=== PATIENT | male | born 1950 | race Caucasian/White ===

== ENCOUNTER 2020-09-18 16:31 | Inpatient (IN) | payer BC, MEDICARE ==
[2020-09-18] VITALS (11 sets, daily range): BP systolic 100–152; BP diastolic 59–86
[~2020-09-18] VITALS: Ht 188 cm; Wt 90.4 kg
[2020-09-18 17:28] LABS: BASO # 0.1 10^3/uL (0.0-0.2); BASO % 0.5 % (0.0-1.0); EOS # 0.5 10^3/uL (0.0-0.5); EOS % 3.3 % (0.0-3.0); LYMPH # 1.3 10^3/uL (1.5-5.0); LYMPH % 8.7 % (24.0-44.0); MEAN CORPUSCULAR HGB CONC 30.6 g/dl (32.0-36.5); MONO # 0.9 10^3/uL (0.0-0.8); MONO % 6.1 % (0.0-5.0); NEUTROPHILS # 11.6 10^3/uL (1.5-8.5); NEUTROPHILS % 79.2 % (36.0-66.0); PLATELET COUNT, AUTOMATED 367 10^3/uL (150-450); RED BLOOD COUNT 1.34 10^6/uL (4.30-6.10); WHITE BLOOD COUNT 14.7 10^3/uL (4.0-10.0)
[2020-09-18 17:31] LABS: MEAN CORPUSCULAR VOLUME 134.3 fl (80.0-96.0)
[2020-09-18 17:32] LABS: HEMOGLOBIN 5.5 g/dl (13.5-17.5)
[2020-09-18 17:42] LABS: INR 1.3; PROTHROMBIN TIME 16.5 SECONDS (12.5-14.3)
[2020-09-18] MEDS ORDERED: PANTOPRAZOLE 40MG VIAL (C9113 PER 1) IV ONE (17:45)
[2020-09-18 17:54] LABS: ALT/SGPT 11 U/L (12-78); BLOOD UREA NITROGEN 62 MG/DL (7-18); CALCIUM LEVEL 8.8 MG/DL (8.8-10.2); CARBON DIOXIDE LEVEL 21 MEQ/L (21-32); CHLORIDE LEVEL 110 MEQ/L (98-107); CREATININE FOR GFR 3.13 MG/DL (0.70-1.30); GLOMERULAR FILTRATION RATE 21.1 (>49); GLUCOSE, FASTING 103 MG/DL (70-100); POTASSIUM SERUM 4.5 MEQ/L (3.5-5.1); SODIUM LEVEL 140 MEQ/L (136-145)
[2020-09-18 17:55] LABS: ALBUMIN 2.8 GM/DL (3.2-5.2); BILIRUBIN,DIRECT 0.1 MG/DL (0.0-0.2); BILIRUBIN,TOTAL 0.2 MG/DL (0.2-1.0); CK-MB VALUE MASS 2.2 NG/ML (<3.6); CPK CREATINE PHOSPHOKINASE 62 U/L (39-308); LIPASE 512 U/L (73-393); MB/CK RELATIVE INDEX 3.55 (< OR =4); TOTAL PROTEIN 5.6 GM/DL (6.4-8.2); TROPONIN I < 0.02 NG/ML (< 0.10)
[2020-09-18] MEDS ORDERED: ELIQ5TAB PO (17:58)
[2020-09-18] MEDS ORDERED: TACR0.5C3 PO ×2 (17:58→18:18)
[2020-09-18] MEDS ORDERED: MAGN400C PO (17:58)
[2020-09-18] MEDS ORDERED: METO100T5 PO (17:58)
[2020-09-18 18:04] LABS: ANISOCYTOSIS 1+
[2020-09-18 18:05] LABS: POLYCHROMASIA 1+
[2020-09-18 18:09] LABS: PLATELET ESTIMATE NORMAL (NORMAL)
[2020-09-18] MEDS ORDERED: ACETAMINOPHEN TAB 650MG DOSE (2X325MG) PO PRN (19:30)
--- NOTE | 2020-09-18 19:51 | HPEPDOC ---
[facility] Medical History & Physical Date of Admission Sep 18, 2020 Date of Service: Sep 18, 2020 History and Physical Chief complaint: Presented to the ER after he was sent in by his tnt line supervisor for low hemoglobin History of present illness: Patient is a 70-year-old male with a PMHx of A. 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 Patient was that he has been feeling weak and had fainted twice while at home, during his ambulation through the living room. Patient followed up with his tnt line supervisor to check a CBC that had revealed a hemoglobin of 5.9. Patient was sent into the ER for further evaluation. Patient reports that hes been feeling weak and tired for the last couple of weeks. Patient denies any chest pain, palpitations or cough, but does report shortness of breath with exertion. He denies any nausea, vomiting, abdominal pain. Does report constipation and his last bowel movement was yesterday. Patient has been reporting dark stools for the last couple of weeks. Patient was started on blood thinners (Eliquis), 10/2019 when he was admitted to hospital in [place] for atrial fibrillation. He notes that the last time he had an EGD was back in 2007 at [facility] and is unsure when his last colonoscopy was. The EGD had revealed esophageal ulcerations and appears to have been done prior to his transplant. Patient reports his appetite is poor and has experience a 40 pound weight loss over last 2 years. Past Medical History: A. 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 Review of Systems: 10 point review of systems complete, all negative otherwise stated in HPI Physical exam: - Vitals: BP [112/61], HR [84], RR [16], Sat [100%RA], Temp [97.2F] - General: Lying in bed, No acute distress, Speaking in full sentences, AAOx3 - HEENT: NC, AT, PERRLA - CVS: RRR, +S1S2 - Lungs: Fair air entry bilaterally, No appreciable wheezing / rales / rhonchi - Abdomen: Soft, Non-distended, Non-tender - Extremities: No lower extremity edema, No calf tenderness - Neuro: No focal motor or sensory deficit - Skin: No visible rashes Labs: See below Imaging: See below EKG: See below Assessment and Plan: Symptomatically anemia / acute blood loss anemia - Patient presented to the ER after experiencing weakness, fatigue and shortness of breath with exertion - To have a low hemoglobin at his cardiologists office confirmed in the ER - Hemoglobin of 5.5 on admission; however, there appears to be macrocytosis - Hg on 05/28/2020 was noted to be 10.5 - Will check iron panel/vitamin B12/folate/reticulocyte count/LDH/haptoglobin - Will transfuse 3 units PRBC - Will start Protonix drip and Carafate - Will keep patient NPO for now - Will consult gastroenterology Paroxysmal A. 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 - Tacrolimus level on 05/28/2020 noted to be 3.1 (Normal 2-20) - Will check tacrolimus level - c/w Tacrolimus CKD3 - BUN/Cr on 05/28/2020 noted to be 30/2.9 - Cr currently appears to be at baseline Gastrointestinal prophylaxis - Will start Protonix / Carafate DVT prophylaxis - Will start TEDs/Sequentials (re: Acute anemia / GI Bleed) Vital Signs Vital Signs Date Time Temp Pulse Resp B/P (MAP) Pulse Ox O2 Delivery O2 Flow Rate FiO2 09/18/20 19:35 96.9 85 16 124/62 100 Room Air Laboratory Data Labs 24H Laboratory Tests 2 09/18/20 17:10: Immature Granulocyte % (Auto) 2.2, Neutrophils (%) (Auto) 79.2H, Lymphocytes (%) (Auto) 8.7L, Monocytes (%) (Auto) 6.1H, Eosinophils (%) (Auto) 3.3H, Basophils (%) (Auto) 0.5, Neutrophils # (Auto) 11.6H, Lymphocytes # (Auto) 1.3L, Monocytes # (Auto) 0.9H, Eosinophils # (Auto) 0.5, Basophils # (Auto) 0.1, Nucleated Red Blood Cells % (auto) 0.4H, Platelet Estimate NORMAL, Polychromasia 1+, Anisocytosis 1+, Macrocytosis 4+, Prothrombin Time 16.5H, Prothromb Time International Ratio 1.30, Anion Gap 9, Glomerular Filtration Rate 21.1L, Calcium Level 8.8, Total Bilirubin 0.2, Direct Bilirubin 0.1, Aspartate Amino Transf (AST/SGOT) 13, Alanine Aminotransferase (ALT/SGPT) 11L, Alkaline Phosphatase 94, Total Creatine Kinase 62, Creatine Kinase MB 2.2, Creatine Kinase MB Relative Index 3.55, Troponin I < 0.02, Total Protein 5.6L, Albumin 2.8L, Albumin/Globulin Ratio 1.0, Lipase 512H 09/18/20 17:59: Coronavirus (COVID-19)(PCR) NEGATIVE, Influenza Type A (RT-PCR) NEGATIVE, Infl uenza Type B (RT-PCR) NEGATIVE, Respiratory Syncytial Virus (PCR) NEGATIVE CBC/BMP Laboratory Tests 09/18/20 17:10 Home Medications Scheduled Apixaban (Eliquis) 5 Mg Tablet, 5 MG PO BID Magnesium Oxide (Magnesium) 400 Mg Capsule, 400 MG PO DAILY Metoprolol Tartrate (Metoprolol Tartrate) 100 Mg Tablet, 50 MG PO BID PCP INSTRUCTED IF BP UNDER 100 TO SKIP DOSE Tacrolimus (Tacrolimus) 0.5 Mg Capsule, 2.5 MG PO DAILY Tacrolimus (Tacrolimus) 0.5 Mg Capsule, 1.5 MG PO QHS Allergies Coded Allergies: No Known Allergies (Verified Allergy, Unknown, 09/18/20) FARIDA PERLA MD Sep 18, 2020 19:51
[2020-09-18 20:24] LABS: FERRITIN 70 NG/ML (26-388); IRON (FE) 39 UG/DL (65-175); LDH LACTATE DEHYDROGENASE 145 U/L (87-241); PERCENT SATURATION 11.3 % (19.7-50.0); TOTAL IRON BINDING CAPACITY 345 UG/DL (250-450)
[2020-09-18 20:28] LABS: FOLATE 3.4 NG/ML (>5.4)
[2020-09-18] MEDS: TACROLIMUS 0.5 MG CAP PO SCH (21:50)
[2020-09-18] MEDS: SUCRALFATE 1 GM TAB PO SCH (21:50)
[2020-09-18] MEDS: PANTOPRAZOLE SODIUM 40 MG in D5W 50 ML IV SCH (22:26)
[2020-09-18] MEDS: METOPROLOL TART 25 MG TABLET PO SCH (23:52)
[2020-09-19] VITALS (11 sets, daily range): BP systolic 117–155; BP diastolic 63–86
[2020-09-19] MEDS: PANTOPRAZOLE SODIUM 40 MG in D5W 50 ML IV SCH ×5 (02:48→20:47)
[2020-09-19 03:14] LABS: BASO # 0.1 10^3/uL (0.0-0.2); BASO % 0.7 % (0.0-1.0); EOS # 0.4 10^3/uL (0.0-0.5); EOS % 3.5 % (0.0-3.0); HEMATOCRIT 25.3 % (42.0-52.0); HEMOGLOBIN 8.1 g/dl (13.5-17.5); LYMPH # 1.3 10^3/uL (1.5-5.0); LYMPH % 10.5 % (24.0-44.0); MEAN CORPUSCULAR HEMOGLOBIN 35.1 pg (27.0-33.0); MEAN CORPUSCULAR VOLUME 109.5 fl (80.0-96.0); MONO # 0.7 10^3/uL (0.0-0.8); MONO % 5.4 % (0.0-5.0); NEUTROPHILS # 9.8 10^3/uL (1.5-8.5); NEUTROPHILS % 77.3 % (36.0-66.0); PLATELET COUNT, AUTOMATED 344 10^3/uL (150-450); RED BLOOD COUNT 2.31 10^6/uL (4.30-6.10); WHITE BLOOD COUNT 12.7 10^3/uL (4.0-10.0)
[2020-09-19 03:51] LABS: PLATELET ESTIMATE NORMAL (NORMAL); POLYCHROMASIA 2+
[2020-09-19 03:52] LABS: ANISOCYTOSIS 3+
[2020-09-19 04:12] LABS: ALBUMIN 2.6 GM/DL (3.2-5.2); ALT/SGPT 11 U/L (12-78); BILIRUBIN,TOTAL 0.8 MG/DL (0.2-1.0); BLOOD UREA NITROGEN 53 MG/DL (7-18); CALCIUM LEVEL 8.7 MG/DL (8.8-10.2); CARBON DIOXIDE LEVEL 22 MEQ/L (21-32); CHLORIDE LEVEL 110 MEQ/L (98-107); CK-MB VALUE MASS 2.1 NG/ML (<3.6); CPK CREATINE PHOSPHOKINASE 118 U/L (39-308); GLOMERULAR FILTRATION RATE 21.4 (>49); GLUCOSE, FASTING 99 MG/DL (70-100); MAGNESIUM LEVEL 1.5 MG/DL (1.8-2.4); MB/CK RELATIVE INDEX 1.78 (< OR =4); POTASSIUM SERUM 4.4 MEQ/L (3.5-5.1); SODIUM LEVEL 139 MEQ/L (136-145); TOTAL PROTEIN 5.8 GM/DL (6.4-8.2); TROPONIN I < 0.02 NG/ML (< 0.10)
[2020-09-19] MEDS: MAG SULF 1GM/100ML (MAG RUN) 1 GM in IV 1 EA IV SCH ×3 (05:19→09:46)
[2020-09-19] MEDS: METOPROLOL TART 25 MG TABLET PO SCH ×3 (05:20→18:06)
[2020-09-19] MEDS: SUCRALFATE 1 GM TAB PO SCH ×4 (07:30→20:48)
[2020-09-19] MEDS: MAGNESIUM OXIDE 400 MG TAB (MAG-OX) PO SCH (08:45)
[2020-09-19] MEDS: TACROLIMUS 1 MG CAP (J7507) PO SCH (08:49)
[2020-09-19] MEDS ORDERED: TACROLIMUS 0.5 MG CAP PO SCH (09:00)
--- NOTE | 2020-09-19 10:20 | ECGEPIP ---
[facility] - ED Test Date: 2020-09-18 Pat Name: GINA MENDEZ Department: Room: - Gender: Male Network Mgr: yenny : 1950 Requested By: Nelsy Jain Order Number: [id number] Reading MD: Eric Mauricio Measurements Intervals [place] Rate: 81 P: 66 NM: 153 QRS: 19 QRSD: 85 T: 66 QT: 372 QTc: 433 Interpretive Statements SINUS RHYTHM POSSIBLE RIGHT VENTRICULAR CONDUCTION DELAY NONSPECIFIC ST T WAVE CHANGES DELAYED R WAVE PROGRESSION NO PRIOR ECG FOR COMPARISON Electronically Signed on 09-19-2020 10:20:18 EST by Eric Mauricio
--- NOTE | 2020-09-19 15:01 | IPNPDOC ---
Date Seen The patient was seen on 09/19/20. Progress Note SUBJECTIVE: Received 4 U PRBC total, post transfusion H/H pending. Stable HD, no acute complaints. TB with GI to determine when taking to OR. Denies abdominal pain, lightheadedness, dizziness, n/v/d. OBJECTIVE: PHYSICAL EXAMINATION: VS: Please see General: Lying in bed, No acute distress, AAOx3 HEENT: NC, AT, PERRLA CVS: RRR, +S1S2 Lungs: Fair air entry bilaterally, No appreciable wheezing / rales / rhonchi Abdomen: Soft, Non-distended, Non-tender Extremities: No lower extremity edema, No calf tenderness Neuro: No focal motor or sensory deficit Skin: No visible rashes Labs: See below Imaging: See below EKG: See below ASSESSMENT: 70 y/o M with PMH of paroxysmal atrial fib on eliquis, liver cirrhosis s/p liver transplant, CKD Stage III admitted for further workup/treatment of symptomatic anemia likely 2/2 to GI bleed. PLAN: #Symptomatically anemia / acute blood loss anemia 2/2 to GI bleed - Hemoglobin of 5.5. S/p 3 units PRBC 8.11/09. F/u CBC after fourth unit - Hg on 05/28/2020 was noted to be 10.5 - MCV high but could be still MF anemia - Iron low, folate low as well. F/u Vitamin B12 level - Will start folic acid daily, iron supplement when taking PO - C/w Protonix drip, Carafate, NPO. - GI to see and take for possible colo/EGD 09/19/20 or 09/20/20 #Paroxysmal A. 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 Current tacrolimus level lab pending - c/w Tacrolimus for now unless not indicated with pending level #CKD3 - BUN/Cr on 05/28/2020 noted to be 30/2.9 - Cr currently appears to be at baseline #GI prophylaxis - C/wProtonix / Carafate #DVT prophylaxis - C/w TEDs/Sequentials (re: Acute anemia / GI Bleed) DISPOSITION: Stable, H/H correcting appropriately. F/u GI recommendations. Plan is home when medically improved. VS, I&O, 24H, [place] Vital Signs/I&O Vital Signs Date Time Temp Pulse Resp B/P (MAP) Pulse Ox O2 Delivery O2 Flow Rate FiO2 09/19/20 12:01 97.2 72 18 132/76 (94) 98 Room Air I&O- Last 24 Hours up to 6 AM 09/19/20 06:00 Intake Total 3085 ml Output Total 725 ml Balance 2360 ml Laboratory Data 24H LABS Laboratory Tests 2 09/18/20 17:10: Immature Granulocyte % (Auto) 2.2, Neutrophils (%) (Auto) 79.2H, Lymphocytes (%) (Auto) 8.7L, Monocytes (%) (Auto) 6.1H, Eosinophils (%) (Auto) 3.3H, Basophils (%) (Auto) 0.5, Neutrophils # (Auto) 11.6H, Lymphocytes # (Auto) 1.3L, Monocytes # (Auto) 0.9H, Eosinophils # (Auto) 0.5, Basophils # (Auto) 0.1, Reticulocyte # (auto) 137.3H, Nucleated Red Blood Cells % (auto) 0.4H, Platelet Estimate NORMAL, Polychromasia 1+, Anisocytosis 1+, Macrocytosis 4+, Percent Reticulocyte Count 10.3H, Reticulocyte Hemoglobin Equivalent 37.2H, Prothrombin Time 16.5H, Prothromb Time International Ratio 1.30, Anion Gap 9, Glomerular Filtration Rate 21.1L, Calcium Level 8.8, Iron Level 39L, Total Iron Binding Capacity 345, Transferrin % Saturation 11.3L, Ferritin 70, Total Bilirubin 0.2, Direct Bilirubin 0.1, Aspartate Amino Transf (AST/SGOT) 13, Alanine Aminotransferase (ALT/SGPT) 11L, Alkaline Phosphatase 94, Lactate Dehydrogenase 145, Total Creatine Kinase 62, Creatine Kinase MB 2.2, Creatine Kinase MB Relative Index 3.55, Troponin I < 0.02, Total Protein 5.6L, Albumin 2.8L, Albumin/Globulin Ratio 1.0, Lipase 512H, Folate 3.4L 09/18/20 17:59: Coronavirus (COVID-19)(PCR) NEGATIVE, Influenza Type A (RT-PCR) NEGATIVE, Influenza Type B (RT-PCR) NEGATIVE, Respiratory Syncytial Virus (PCR) NEGATIVE 09/18/20 20:40: 09/19/20 02:55: Immature Granulocyte % (Auto) 2.6, Neutrophils (%) (Auto) 77.3H, Lymphocytes (%) (Auto) 10.5L, Monocytes (%) (Auto) 5.4H, Eosinophils (%) (Auto) 3.5H, Basophils (%) (Auto) 0.7, Neutrophils # (Auto) 9.8H, Lymphocytes # (Auto) 1.3L, Monocytes # (Auto) 0.7, Eosinophils # (Auto) 0.4, Basophils # (Auto) 0.1, Nucleated Red Blood Cells % (auto) 0.6H, Platelet Estimate NORMAL, Polychromasia 2+, Anisocytosis 3+, Anion Gap 7L, Glomerular Filtration Rate 21.4L, Calcium Level 8.7L, Total Bilirubin 0.8#, Aspartate Amino Transf (AST/SGOT) 12, Alanine Aminotransferase (ALT/SGPT) 11L, Alkaline Phosphatase 89, Total Creatine Kinase 118#, Creatine Kinase MB 2.1, Creatine Kinase MB Relative Index 1.78, Troponin I < 0.02, Total Protein 5.8L, Albumin 2.6L, Albumin/Globulin Ratio 0.8, Magnesium Level 1.5L CBC/BMP Laboratory Tests 09/18/20 17:10 09/19/20 02:55 Current Medications Current Medications Medications (Trade) Dose Ordered Sig/Paige Route PRN Reason Start Time Stop Time Status Last Admin Dose Admin Acetaminophen (Tylenol Tab) 650 mg Q4H PRN PO PAIN OR FEVER 09/18/20 19:30 Home Med (Med Rec Complete!) ASDIRECTED XX 09/18/20 18:30 09/18/20 18:24 DC Magnesium Oxide (Mag-Ox) 400 mg DAILY PO 09/19/20 09:00 09/19/20 08:45 Magnesium Sulfate/ Dextrose 1 gm/IV Miscellaneous Supplies 100 ml @ 100 mls/hr 0500,0600,0700 IV 09/19/20 05:00 09/19/20 10:00 DC 09/19/20 09:46 Metoprolol Tartrate (Lopressor) 25 mg Q6H PO 09/19/20 00:00 09/19/20 12:41 Pantoprazole Sodium 40 mg/ Dextrose 50 ml @ 10 mls/hr Q5H IV 09/18/20 19:30 09/19/20 10:38 Sucralfate (Carafate) 1 gm ACHS PO 09/18/20 21:00 09/19/20 12:41 Tacrolimus (Prograf) 0.5 mg QHS PO 09/18/20 21:00 09/18/20 21:50 Tacrolimus (Prograf) 1 mg DAILY PO 09/19/20 09:00 09/18/20 20:36 DC Tacrolimus (Prograf) 1 mg DAILY PO 09/19/20 09:00 09/19/20 08:49 Allergies Coded Allergies: No Known Allergies (Verified Allergy, Unknown, 09/18/20) Noy Esposito MD Sep 19, 2020 15:01
[2020-09-19 15:21] LABS: HEMATOCRIT 27.8 % (42.0-52.0); MEAN CORPUSCULAR HEMOGLOBIN 34.9 pg (27.0-33.0); MEAN CORPUSCULAR HGB CONC 32.4 g/dl (32.0-36.5); MEAN CORPUSCULAR VOLUME 107.8 fl (80.0-96.0); PLATELET COUNT, AUTOMATED 313 10^3/uL (150-450); RED BLOOD COUNT 2.58 10^6/uL (4.30-6.10); WHITE BLOOD COUNT 10.3 10^3/uL (4.0-10.0)
[2020-09-19] MEDS ORDERED: MOM 30ML SUSPENSION UDC PO ONE (17:00)
[2020-09-19] MEDS: TACROLIMUS 0.5 MG CAP PO SCH (20:51)
[2020-09-20] VITALS: BP 145/85
[2020-09-20] MEDS: METOPROLOL TART 25 MG TABLET PO SCH ×5 (00:07→23:45)
[2020-09-20] MEDS: PANTOPRAZOLE SODIUM 40 MG in D5W 50 ML IV SCH ×5 (01:33→21:29)
[2020-09-20 04:00] VITALS: BP 131/87
[2020-09-20 05:30] LABS: BASO # 0.1 10^3/uL (0.0-0.2); BASO % 0.7 % (0.0-1.0); EOS # 0.4 10^3/uL (0.0-0.5); EOS % 4.1 % (0.0-3.0); HEMATOCRIT 26.8 % (42.0-52.0); LYMPH # 0.8 10^3/uL (1.5-5.0); LYMPH % 7.5 % (24.0-44.0); MEAN CORPUSCULAR HGB CONC 33.6 g/dl (32.0-36.5); MEAN CORPUSCULAR VOLUME 107.2 fl (80.0-96.0); MONO # 0.8 10^3/uL (0.0-0.8); MONO % 7.5 % (0.0-5.0); NEUTROPHILS # 8.2 10^3/uL (1.5-8.5); PLATELET COUNT, AUTOMATED 288 10^3/uL (150-450); WHITE BLOOD COUNT 10.4 10^3/uL (4.0-10.0)
[2020-09-20 05:53] LABS: ALBUMIN 2.6 GM/DL (3.2-5.2); BILIRUBIN,TOTAL 0.5 MG/DL (0.2-1.0); CALCIUM LEVEL 8.3 MG/DL (8.8-10.2); CREATININE FOR GFR 2.75 MG/DL (0.70-1.30); GLOMERULAR FILTRATION RATE 24.5 (>49); MAGNESIUM LEVEL 2.3 MG/DL (1.8-2.4); POTASSIUM SERUM 4.4 MEQ/L (3.5-5.1); TOTAL PROTEIN 5.5 GM/DL (6.4-8.2)
[2020-09-20 06:07] LABS: PLATELET ESTIMATE NORMAL (NORMAL)
[2020-09-20 06:08] LABS: ANISOCYTOSIS 2+
[2020-09-20 07:50] VITALS: BP 148/78
[2020-09-20] MEDS ORDERED: MOM 30ML SUSPENSION UDC PO ONE (08:00)
[2020-09-20] MEDS: TACROLIMUS 1 MG CAP (J7507) PO SCH (08:20)
[2020-09-20] MEDS: MAGNESIUM OXIDE 400 MG TAB (MAG-OX) PO SCH (08:21)
[2020-09-20] MEDS: SUCRALFATE 1 GM TAB PO SCH ×4 (08:21→20:02)
[2020-09-20] MEDS: FOLIC ACID 1 MG TAB PO SCH (08:21)
[2020-09-20] MEDS: SODIUM CHLORIDE NASAL 0.65% SPRAY BTL (OCEAN) SCH ×3 (11:27→20:03)
[2020-09-20 12:19] VITALS: BP 166/88
--- NOTE | 2020-09-20 12:49 | IPNPDOC ---
Date Seen The patient was seen on 09/20/20. Progress Note SUBJECTIVE: H/H stable, no s/s of continued bleeding. OR tomorrow for EGD/colo by GI. Denies abdominal pain, lightheadedness, dizziness, n/v/d. OBJECTIVE: PHYSICAL EXAMINATION: VS: Please see General: Lying in bed, No acute distress, AAOx3 HEENT: NC, AT, PERRLA CVS: RRR, +S1S2 Lungs: Fair air entry bilaterally, No appreciable wheezing / rales / rhonchi Abdomen: Soft, Non-distended, Non-tender Extremities: No lower extremity edema, No calf tenderness Neuro: No focal motor or sensory deficit Skin: Multiple RUE skin tears near IV site. Labs: See below Imaging: See below EKG: See below ASSESSMENT: 70 y/o M with PMH of paroxysmal atrial fib on eliquis, liver cirrhosis s/p liver transplant, CKD Stage III admitted for further workup/treatment of symptomatic anemia likely 2/2 to GI bleed. PLAN: #Acute on chronic anemia likely 2/2 to GI bleed (source unknown), underlying iro n deficiency, folic acid deficiency. - H/H 07/11.1. Baseline Hg on 05/28/2020 was noted to be 10.5 - MCV high but could be still MF anemia. Hx of alcohol abuse - Iron low, folate low as well. F/u Vitamin B12 level - C/w folic acid daily, iron supplement - C/w Protonix drip, Carafate, NPO. - GI take for colo/EGD 09/21/20 #Paroxysmal A. 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 Current tacrolimus level lab pending - c/w Tacrolimus for now unless not indicated with pending level #CKD3 - BUN/Cr on 05/28/2020 noted to be 30/2.9 - Cr currently appears to be at baseline #GI prophylaxis - C/wProtonix / Carafate #DVT prophylaxis - C/w TEDs/Sequentials (re: Acute anemia / GI Bleed) DISPOSITION: F/u GI recommendations. OR 09/21/20. Plan is home when medically improved. VS, I&O, 24H, Fishbone Vital Signs/I&O Vital Signs Date Time Temp Pulse Resp B/P (MAP) Pulse Ox O2 Delivery O2 Flow Rate FiO2 09/20/20 12:19 97.7 73 18 166/88 (114) 100 Room Air I&O- Last 24 Hours up to 6 AM 09/20/20 06:00 Intake Total 1790 ml Output Total 1150 ml Balance 640 ml Laboratory Data 24H LABS Laboratory Tests 2 09/19/20 15:08: Nucleated Red Blood Cells % (auto) 0.3H 09/20/20 04:59: Nucleated Red Blood Cells % (auto) 0.2H, Immature Granulocyte % (Auto) 1.2, Neutrophils (%) (Auto) 79.0H, Lymphocytes (%) (Auto) 7.5L, Monocytes (%) (Auto) 7.5H, Eosinophils (%) (Auto) 4.1H, Basophils (%) (Auto) 0.7, Neutrophils # (Auto) 8.2, Lymphocytes # (Auto) 0.8L, Monocytes # (Auto) 0.8, Eosinophils # (Auto) 0.4, Basophils # (Auto) 0.1, Platelet Estimate NORMAL, Anisocytosis 2+, Macrocytosis 2+, Anion Gap 5L, Glomerular Filtration Rate 24.5L, Calcium Level 8.3L, Magnesium Level 2.3, Total Bilirubin 0.5, Aspartate Amino Transf (AST/SGOT) 16, Alanine Aminotransferase (ALT/SGPT) 10L, Alkaline Phosphatase 83, Total Protein 5.5L, Albumin 2.6L, Albumin/Globulin Ratio 0.9 CBC/BMP Laboratory Tests 09/19/20 15:08 09/20/20 04:59 Current Medications Current Medications Medications (Trade) Dose Ordered Sig/Paige Route PRN Reason Start Time Stop Time Status Last Admin Dose Admin Acetaminophen (Tylenol Tab) 650 mg Q4H PRN PO PAIN OR FEVER 09/18/20 19:30 Folic Acid (Folic Acid) 1 mg DAILY PO 09/20/20 09:00 09/20/20 08:21 Home Med (Med Rec Complete!) ASDIRECTED XX 09/18/20 18:30 09/18/20 18:24 DC Magnesium Oxide (Mag-Ox) 400 mg DAILY PO 09/19/20 09:00 09/20/20 08:21 Magnesium Sulfate/ Dextrose 1 gm/IV Miscellaneous Supplies 100 ml @ 100 mls/hr 0500,0600,0700 IV 09/19/20 05:00 09/19/20 10:00 DC 09/19/20 09:46 Metoprolol Tartrate (Lopressor) 25 mg Q6H PO 09/19/20 00:00 09/20/20 06:28 Pantoprazole Sodium 40 mg/ Dextrose 50 ml @ 10 mls/hr Q5H IV 09/18/20 19:30 09/20/20 11:27 Sodium Chloride ([place] Nasal [place]) 2 spray TID NA 09/20/20 09:00 09/20/20 11:27 Sucralfate (Carafate) 1 gm ACHS PO 09/18/20 21:00 09/20/20 08:21 Tacrolimus (Prograf) 0.5 mg QHS PO 09/18/20 21:00 09/19/20 20:51 Tacrolimus (Prograf) 1 mg DAILY PO 09/19/20 09:00 09/18/20 20:36 DC Tacrolimus (Prograf) 1 mg DAILY PO 09/19/20 09:00 09/20/20 08:20 Allergies Coded Allergies: No Known Allergies (Verified Allergy, Unknown, 09/18/20) Noy Esposito MD Sep 20, 2020 12:49
[2020-09-20 15:49] VITALS: BP 145/84
[2020-09-20] MEDS ORDERED: POLYETHYLENE GLYCOL (MIRALAX) 238GM BOTTLE PO ONE (16:00)
[2020-09-20 20:00] VITALS: BP 150/84
[2020-09-20] MEDS: FERROUS SULFATE 325MG TAB PO SCH (20:02)
[2020-09-20] MEDS: TACROLIMUS 0.5 MG CAP PO SCH (20:02)
[2020-09-21] MEDS: PANTOPRAZOLE SODIUM 40 MG in D5W 50 ML IV SCH ×5 (02:15→21:32)
[2020-09-21 04:00] VITALS: BP 153/85
[2020-09-21] MEDS ORDERED: POLYETHYLENE GLYCOL (MIRALAX) 238GM BOTTLE PO ONE (05:00)
[2020-09-21 05:02] LABS: BASO # 0.1 10^3/uL (0.0-0.2); BASO % 0.5 % (0.0-1.0); EOS # 0.4 10^3/uL (0.0-0.5); EOS % 4.3 % (0.0-3.0); HEMATOCRIT 27.7 % (42.0-52.0); HEMOGLOBIN 9.3 g/dl (13.5-17.5); LYMPH # 0.7 10^3/uL (1.5-5.0); MEAN CORPUSCULAR HEMOGLOBIN 35.8 pg (27.0-33.0); MEAN CORPUSCULAR HGB CONC 33.6 g/dl (32.0-36.5); MEAN CORPUSCULAR VOLUME 106.5 fl (80.0-96.0); MONO # 0.7 10^3/uL (0.0-0.8); MONO % 7.8 % (0.0-5.0); NEUTROPHILS # 7.5 10^3/uL (1.5-8.5); NEUTROPHILS % 79.7 % (36.0-66.0); PLATELET COUNT, AUTOMATED 314 10^3/uL (150-450); WHITE BLOOD COUNT 9.4 10^3/uL (4.0-10.0)
[2020-09-21 05:21] LABS: PLATELET ESTIMATE NORMAL (NORMAL)
[2020-09-21 05:23] LABS: ALBUMIN 2.7 GM/DL (3.2-5.2); ANISOCYTOSIS 2+; BILIRUBIN,TOTAL 0.6 MG/DL (0.2-1.0); CREATININE FOR GFR 2.54 MG/DL (0.70-1.30); GLOMERULAR FILTRATION RATE 26.9 (>49); POTASSIUM SERUM 4.6 MEQ/L (3.5-5.1); TOTAL PROTEIN 5.4 GM/DL (6.4-8.2)
[2020-09-21 05:24] LABS: POLYCHROMASIA 1+
[2020-09-21] MEDS: METOPROLOL TART 25 MG TABLET PO SCH ×4 (05:26→23:45)
[2020-09-21 07:53] VITALS: BP 137/80
[2020-09-21] MEDS: TACROLIMUS 1 MG CAP (J7507) PO SCH (08:03)
[2020-09-21] MEDS: FERROUS SULFATE 325MG TAB PO SCH ×2 (08:03→20:03)
[2020-09-21] MEDS: SODIUM CHLORIDE NASAL 0.65% SPRAY BTL (OCEAN) SCH ×3 (08:03→20:06)
[2020-09-21] MEDS: MAGNESIUM OXIDE 400 MG TAB (MAG-OX) PO SCH (08:03)
[2020-09-21] MEDS: SUCRALFATE 1 GM TAB PO SCH ×4 (08:03→20:03)
[2020-09-21] MEDS: FOLIC ACID 1 MG TAB PO SCH (08:03)
[2020-09-21 11:38] VITALS: BP 159/89
[2020-09-21 14:07] LABS: HAPTOGLOBIN 135 mg/dL (32-363); VIT B12 UNSAT BINDING CAPACITY 1246 pg/mL (725-2045)
--- NOTE | 2020-09-21 15:19 | IPNPDOC ---
Date Seen The patient was seen on 09/21/20. Progress Note SUBJECTIVE: H/H stable, no s/s of continued bleeding. OR today for EGD/colo by GI, not going until later this evening. Denies abdominal pain, lightheadedness, dizziness, n/v/d. OBJECTIVE: PHYSICAL EXAMINATION: VS: Please see General: Lying in bed, No acute distress, AAOx3 HEENT: NC, AT, PERRLA CVS: RRR, +S1S2 Lungs: Fair air entry bilaterally, No appreciable wheezing / rales / rhonchi Abdomen: Soft, Non-distended, Non-tender Extremities: No lower extremity edema, No calf tenderness Neuro: No focal motor or sensory deficit Skin: Multiple RUE skin tears near IV site. Labs: See below Imaging: See below EKG: See below ASSESSMENT: 70 y/o M with PMH of paroxysmal atrial fib on eliquis, liver cirrhosis s/p liver transplant, CKD Stage III admitted for further workup/treatment of symptomatic anemia likely 2/2 to GI bleed. PLAN: #Acute on chronic anemia likely 2/2 to GI bleed (source unknown), underlying iron deficiency, folic acid deficiency. - H/H 9.3, s/p 4 U PRBC this admission - Baseline H.5 - Iron low, folate low as well. Vitamin B12 level wnl - C/w folic acid daily, iron supplement - C/w Protonix drip, Carafate, NPO. - GI take for colo/EGD 09/21/20 #Paroxysmal A. 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 Current tacrolimus level lab pending - c/w Tacrolimus for now unless not indicated with pending level #CKD3 - BUN/Cr on 05/28/2020 noted to be 30/2.9 - Cr currently appears to be at baseline #GI prophylaxis - C/w Protonix / Carafate #DVT prophylaxis - C/w TEDs/Sequentials (re: Acute anemia / GI Bleed) DISPOSITION: F/u GI recommendations. OR 09/21/20. Plan is home when medically improved. VS, I&O, 24H, Fishbone Vital Signs/I&O Vital Signs Date Time Temp Pulse Resp B/P (MAP) Pulse Ox O2 Delivery O2 Flow Rate FiO2 09/21/20 11:50 80 159/89 09/21/20 11:38 97.3 18 100 Room Air I&O- Last 24 Hours up to 6 AM 09/21/20 06:00 Intake Total 3400 ml Output Total 400 ml Balance 3000 ml Laboratory Data 24H LABS Laboratory Tests 2 09/21/20 04:27: Immature Granulocyte % (Auto) 0.7, Neutrophils (%) (Auto) 79.7H, Lymphocytes (%) (Auto) 7.0L, Monocytes (%) (Auto) 7.8H, Eosinophils (%) (Auto) 4.3H, Basophils (%) (Auto) 0.5, Neutrophils # (Auto) 7.5, Lymphocytes # (Auto) 0.7L, Monocytes # (Auto) 0.7, Eosinophils # (Auto) 0.4, Basophils # (Auto) 0.1, Nucleated Red Blood Cells % (auto) 0.0, Platelet Estimate NORMAL, Polychromasia 1+, Anisocytosis 2+, Macrocytosis 2+, Anion Gap 5L, Glomerular Filtration Rate 26.9L, Calcium Level 8.0L, Magnesium Level 2.0, Total Bilirubin 0.6, Aspartate Amino Transf (AST/SGOT) 14, Alanine Aminotransferase (ALT/SGPT) 10L, Alkaline Phosphatase 98, Total Protein 5.4L, Albumin 2.7L, Albumin/Globulin Ratio 1.0, Lipase 239 CBC/BMP Laboratory Tests 09/21/20 04:27 Current Medications Current Medications Medications (Trade) Dose Ordered Sig/Paige Route PRN Reason Start Time Stop Time Status Last Admin Dose Admin Acetaminophen (Tylenol Tab) 650 mg Q4H PRN PO PAIN OR FEVER 09/18/20 19:30 Ferrous Sulfate (Ferrous Sulfate) 325 mg BID PO 09/20/20 21:00 09/21/20 08:03 Folic Acid (Folic Acid) 1 mg DAILY PO 09/20/20 09:00 09/21/20 08:03 Home Med (Med Rec Complete!) ASDIRECTED XX 09/18/20 18:30 09/18/20 18:24 DC Magnesium Oxide (Mag-Ox) 400 mg DAILY PO 12/5/20 09:00 09/21/20 08:03 Magnesium Sulfate/ Dextrose 1 gm/IV Miscellaneous Supplies 100 ml @ 100 mls/hr 0500,0600,0700 IV 09/19/20 05:00 09/19/20 10:00 DC 09/19/20 09:46 Metoprolol Tartrate (Lopressor) 25 mg Q6H PO 09/19/20 00:00 09/21/20 11:50 Pantoprazole Sodium 40 mg/ Dextrose 50 ml @ 10 mls/hr Q5H IV 09/18/20 19:30 09/21/20 12:37 Sodium Chloride ([place] Nasal [place]) 2 spray TID NA 09/20/20 09:00 09/21/20 08:03 Sucralfate (Carafate) 1 gm ACHS PO 09/18/20 21:00 09/21/20 11:50 Tacrolimus (Prograf) 0.5 mg QHS PO 09/18/20 21:00 09/20/20 20:02 Tacrolimus (Prograf) 1 mg DAILY PO 09/19/20 09:00 09/18/20 20:36 DC Tacrolimus (Prograf) 1 mg DAILY PO 09/19/20 09:00 09/21/20 08:03 Allergies Coded Allergies: No Known Allergies (Verified Allergy, Unknown, 09/18/20) Noy Esposito MD Sep 21, 2020 15:19
[2020-09-21 15:38] VITALS: BP 162/83
[2020-09-21] MEDS ORDERED: propofoL 200 MG/20 ML VIAL As Ordered ONE ×2 (16:45→18:16)
[2020-09-21] MEDS ORDERED: LIDOCAINE 2% 100MG/5ML SDV (FOR ANES.) As Ordered ONE (16:45)
[2020-09-21] MEDS ORDERED: GLUCAGON INJ 1MG VIAL As Ordered ONE (18:24)
--- NOTE | 2020-09-21 18:43 | ROOR ---
Patient Name: Narendra Blanco Procedure Date: 09/21/2020 4:46 PM Date of : 1950 Age: 70 Gender: Male Note Status: Finalized Procedure: Upper GI endoscopy Indications: Iron deficiency anemia Providers: Chaparro GOLDEN MD Referring MD: 2. Inpatient 2. Inpatient, Deven Bedolla MD Requesting Provider: Medicines: Monitored Anesthesia Care Complications: No immediate complications. Procedure: Pre-Anesthesia Assessment: - The heart rate, respiratory rate, oxygen saturations, blood pressure, adequacy of pulmonary ventilation, and response to care were monitored throughout the procedure. The Endoscope was introduced through the mouth, and advanced to the second part of duodenum. The upper GI endoscopy was accomplished without difficulty. The patient tolerated the procedure well. Findings: A widely patent Schatzki ring was found at the gastroesophageal junction. Scattered moderate inflammation characterized by erosions, erythema and shallow ulcerations was found in the gastric antrum. Biopsies were taken with a cold forceps for histology. The exam of the stomach was otherwise normal. Scattered mild mucosal flattening was found in the second portion of the duodenum. Biopsies for histology were taken with a cold forceps for evaluation of celiac disease. Impression: - Widely patent Schatzki ring. - Erosive gastritis. Biopsied. - Mildly flattened mucosa was found in the duodenum. Biopsied. - The examination was otherwise normal. Recommendation: - Await pathology results. - No ibuprofen, naproxen, or other non-steroidal anti-inflammatory drugs. - Use Prilosec (omeprazole) 40 mg PO daily for 3 months. Procedure Code(s): --- Professional --- 71406, Esophagogastroduodenoscopy, flexible, transoral; with biopsy, single or multiple Diagnosis Code(s): --- Professional --- D50.9, Iron deficiency anemia, unspecified K31.89, Other diseases of stomach and duodenum K29.70, Gastritis, unspecified, without bleeding K22.2, Esophageal obstruction CPT copyright 2019 [employer]. All rights reserved. The codes documented in this report are preliminary and upon insurance counselor review may be revised to meet current compliance requirements. Chaparro Golden MD Chaparro GOLDEN MD 09/21/2020 6:42:51 PM Electronically signed by Chaparro GOLDEN MD Number of Addenda: 0 Note Initiated On: 09/21/2020 4:46 PM Estimated Blood Loss: Estimated blood loss: none.
--- NOTE | 2020-09-21 18:54 | ROOR ---
Patient Name: Narendra Blanco Procedure Date: 09/21/2020 4:43 PM Date of : 1950 Age: 70 Gender: Male Note Status: Finalized Procedure: Colonoscopy Indications: Iron deficiency anemia Providers: Chaparro GOLDEN MD Referring MD: 2. Inpatient 2. Inpatient, Deven Bedolla MD Requesting Provider: Medicines: Monitored Anesthesia Care Complications: No immediate complications. Procedure: Pre-Anesthesia Assessment: - The heart rate, respiratory rate, oxygen saturations, blood pressure, adequacy of pulmonary ventilation, and response to care were monitored throughout the procedure. The Colonoscope was introduced through the anus and advanced to the cecum, identified by appendiceal orifice and ileocecal valve. The colonoscopy was performed without difficulty. The quality of the bowel preparation was fair. Findings: The perianal and digital rectal examinations were normal. A 10 mm polyp was found in the descending colon. The polyp was semi-pedunculated. The polyp was removed with a cold snare. Resection and retrieval were complete. To prevent bleeding after the polypectomy, three hemostatic clips were successfully placed. There was no bleeding at the end of the procedure. Mild sigmoid diverticulosis and small internal hemorrhoids. The exam was otherwise without abnormality on direct and retroflexion views. Impression: - Colon preparation was fair. - One 10 mm polyp in the descending colon, removed with a cold snare. Resected and retrieved. Clips were placed. - Mild sigmoid diverticulosis and small internal hemorrhoids. - The examination was otherwise normal on direct and retroflexion views. Recommendation: - Regular diet. - Resume Xarelto (rivaroxaban) at prior dose in 2 days. - Repeat colonoscopy in 2 years because the bowel preparation was suboptimal, for surveillance after piecemeal polypectomy and for surveillance based on pathology results. - Await pathology results. - Degree of anemia is out of proportion to his iron studies. Will need Folate deficit addressed. Consider outpatient Hematology referral if this does not correct anemia and markedly increased MCV. - Pt can follow up with his PCP. - He does at this time not need GI follow up. If needed, pt can follow up with his primary GI/ Dr Nori Bedolla. Procedure Code(s): --- Professional --- 67653, Colonoscopy, flexible; with removal of tumor(s), polyp(s), or other lesion(s) by snare technique Diagnosis Code(s): --- Professional --- D50.9, Iron deficiency anemia, unspecified K63.5, Polyp of colon CPT copyright 2019 [employer]. All rights reserved. The codes documented in this report are preliminary and upon cement mason helper review may be revised to meet current compliance requirements. Chaparro Golden MD Chaparro GOLDEN MD 09/21/2020 6:54:10 PM Electronically signed by Chaparro GOLDEN MD Number of Addenda: 0 Note Initiated On: 09/21/2020 4:43 PM Estimated Blood Loss: Estimated blood loss: none.
[2020-09-21] MEDS ORDERED: ONDANSETRON 4MG/2ML VIAL IV PRN (19:00)
[2020-09-21] MEDS ORDERED: LR 1,000 ML IV SCH (19:00)
[2020-09-21 19:30] VITALS: BP 157/91
[2020-09-21 20:00] VITALS: BP 132/80
[2020-09-21] MEDS: TACROLIMUS 0.5 MG CAP PO SCH (20:05)
[2020-09-22] MEDS: PANTOPRAZOLE SODIUM 40 MG in D5W 50 ML IV SCH ×2 (02:44→07:49)
[2020-09-22 04:00] VITALS: BP 136/74
[2020-09-22 06:02] LABS: BASO # 0.1 10^3/uL (0.0-0.2); BASO % 0.7 % (0.0-1.0); EOS # 0.3 10^3/uL (0.0-0.5); EOS % 4.1 % (0.0-3.0); HEMATOCRIT 27.9 % (42.0-52.0); LYMPH # 0.6 10^3/uL (1.5-5.0); LYMPH % 7.7 % (24.0-44.0); MEAN CORPUSCULAR HEMOGLOBIN 34.4 pg (27.0-33.0); MEAN CORPUSCULAR HGB CONC 32.3 g/dl (32.0-36.5); MEAN CORPUSCULAR VOLUME 106.5 fl (80.0-96.0); MONO # 0.9 10^3/uL (0.0-0.8); MONO % 10.5 % (0.0-5.0); NEUTROPHILS # 6.4 10^3/uL (1.5-8.5); NEUTROPHILS % 76.5 % (36.0-66.0); PLATELET COUNT, AUTOMATED 295 10^3/uL (150-450); RED BLOOD COUNT 2.62 10^6/uL (4.30-6.10); WHITE BLOOD COUNT 8.4 10^3/uL (4.0-10.0)
[2020-09-22 06:21] LABS: ALBUMIN 2.7 GM/DL (3.2-5.2); BILIRUBIN,TOTAL 0.6 MG/DL (0.2-1.0); CALCIUM LEVEL 8.9 MG/DL (8.8-10.2); CREATININE FOR GFR 2.6 MG/DL (0.70-1.30); GLOMERULAR FILTRATION RATE 26.2 (>49); MAGNESIUM LEVEL 1.9 MG/DL (1.8-2.4); POTASSIUM SERUM 4.9 MEQ/L (3.5-5.1); TOTAL PROTEIN 5.5 GM/DL (6.4-8.2)
[2020-09-22] MEDS: METOPROLOL TART 25 MG TABLET PO SCH ×2 (06:37→11:53)
[2020-09-22 08:00] VITALS: BP 139/70
[2020-09-22] MEDS: FERROUS SULFATE 325MG TAB PO SCH (08:01)
[2020-09-22] MEDS: FOLIC ACID 1 MG TAB PO SCH (08:01)
[2020-09-22] MEDS: MAGNESIUM OXIDE 400 MG TAB (MAG-OX) PO SCH (08:01)
[2020-09-22] MEDS: SUCRALFATE 1 GM TAB PO SCH ×2 (08:01→11:53)
[2020-09-22] MEDS: TACROLIMUS 1 MG CAP (J7507) PO SCH (08:06)
[2020-09-22] MEDS: SODIUM CHLORIDE NASAL 0.65% SPRAY BTL (OCEAN) SCH (08:06)
[2020-09-22] MEDS ORDERED: FOLI1TAB11 PO (11:14)
[2020-09-22] MEDS ORDERED: PANT40TA29 PO (11:14)
[2020-09-22] MEDS ORDERED: FERR325T18 PO (11:14)
--- NOTE | 2020-09-22 11:35 | DS.PDOC ---
Discharge Summary General Date of Admission Sep 18, 2020 at 19:26 Date of Discharge 09/22/2020 Attending Physician: EDUARDO PRATER MD Discharge Summary PROCEDURES PERFORMED DURING STAY: EGD/colonoscopy by Dr. Golden on 09/21/2020 ADMITTING DIAGNOSES: 1. Symptomatic anemia DISCHARGE DIAGNOSES: 1. Multifactorial symptomatic anemia - 2/2 possible mild GIB, iron deficiency an d folate deficiency 2. 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 CKD3 4. Chronic Afib on eliquis COMPLICATIONS/CHIEF COMPLAINT: Gi Bleed/Symptomatic Anemia. HISTORY OF PRESENT ILLNESS: 70-year-old M with a PMHx of A. 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; on Tacrolimus), CKD3, who presented to the hospital, sent in by his rigging up man for low hemoglobin, reportedly feeling weak and had fainted twice while at home, during ambulation through the living room. Patient followed up with his rigging up man to check a CBC that had revealed a hemoglobin of 5.9 and was sent into the ER for further evaluation. He otherwise denied any chest pain, palpitations or cough, but did report shortness of breath with exertion and dark stools for the last couple of weeks. HOSPITAL COURSE: During his admission, he received a total of 4u of pRBCs. GI was consulted and on 09/21/20 he had EGD and colonoscopy by Dr. Golden that revealed a widely patent Schatzki ring, erosive gastritis, a 10 mm polyp in the descending colon, that was removed with a cold snare and sent to pathology, mild sigmoid diverticulosis and small internal hemorrhoids. He recommended daily PPI therapy, follow up with Dr. Bedolla (primary GI doctor) and next surveillance colonosc opy to be done in 2 years. He also recommended iron and folate repletion with follow up with PCP and possible future referral to hematology if deficiencies persist. He recommended restarting his eliquis for Afib on 09/23 (48h after scoping). His H/H post transfusion was stable and is now being discharged home with PCP and GI follow up and follow up with the transplant medical technician per outpatient schedule. DISCHARGE MEDICATIONS: Please see below. ALLERGIES: Please see below. PHYSICAL EXAMINATION ON DISCHARGE: VITAL SIGNS: Please see below. VS: Please see General: Lying in bed, No acute distress, AAOx3 HEENT: NC, AT, PERRLA CVS: RRR at this time, +S1S2 Lungs: Fair air entry bilaterally, No appreciable wheezing / rales / rhonchi Abdomen: Soft, Non-distended, Non-tender Extremities: No lower extremity edema, No calf tenderness Neuro: No focal motor or sensory deficit Skin: Multiple RUE skin tears near IV site. LABORATORY DATA: Please see below. IMAGING: None this admission PROGNOSIS: Good ACTIVITY: As tolerated DIET: Regular DISCHARGE PLAN: Home with PCP and GI follow up DISPOSITION: Home with PCP and GI follow up DISCHARGE INSTRUCTIONS: 1. Home with PCP and GI follow up ITEMS TO FOLLOWUP ON ON OUTPATIENT: 1. Anemia - PCP follow up for nutritional deficiencies - iron and folate. GI follow up. 2. Liver cirrhosis s/p transplant - routine transplant hepatology follow up DISCHARGE CONDITION: Stable. TIME SPENT ON DISCHARGE: 40 minutes. Vital Signs/I&Os Vital Signs Date Time Temp Pulse Resp B/P (MAP) Pulse Ox O2 Delivery O2 Flow Rate FiO2 09/22/20 08:00 98.2 79 18 139/70 (93) 99 Room Air I&O- Last 24 Hours up to 6 AM 09/22/20 06:00 Intake Total 1260 ml Output Total 800 ml Balance 460 ml Laboratory Data Labs 24H Laboratory Tests 2 09/22/20 05:03: Immature Granulocyte % (Auto) 0.5, Neutrophils (%) (Auto) 76.5H, Lymphocytes (%) (Auto) 7.7L, Monocytes (%) (Auto) 10.5H, Eosinophils (%) (Auto) 4.1H, Basophils (%) (Auto) 0.7, Neutrophils # (Auto) 6.4, Lymphocytes # (Auto) 0.6L, Monocytes # (Auto) 0.9H, Eosinophils # (Auto) 0.3, Basophils # (Auto) 0.1, Nucleated Red Blood Cells % (auto) 0.0, Anion Gap 6L, Glomerular Filtration Rate 26.2L, Calcium Level 8.9, Magnesium Level 1.9, Total Bilirubin 0.6, Aspartate Amino Transf (AST/SGOT) 10, Alanine Aminotransferase (ALT/SGPT) 11L, Alkaline Phosphatase 103, Total Protein 5.5L, Albumin 2.7L, Albumin/Globulin Ratio 1.0 CBC/BMP Laboratory Tests 09/22/20 05:03 Discharge Medications Scheduled Apixaban (Eliquis) 5 Mg Tablet, 5 MG PO BID, (Reported) Ferrous Sulfate (Ferrous Sulfate) 325 Mg Tablet, 325 MG PO BID Folic Acid (Folic Acid) 1 Mg Tablet, 1 MG PO DAILY Magnesium Oxide (Magnesium) 400 Mg Capsule, 400 MG PO DAILY, (Reported) Metoprolol Tartrate (Metoprolol Tartrate) 100 Mg Tablet, 50 MG PO BID, (Reported) PCP INSTRUCTED IF BP UNDER 100 TO SKIP DOSE Pantoprazole Sodium (Pantoprazole Sodium) 40 Mg Tablet.dr, 40 MG PO DAILY Tacrolimus (Tacrolimus) 0.5 Mg Capsule, 1 MG PO DAILY, (Reported) Tacrolimus (Tacrolimus) 0.5 Mg Capsule, 0.5 MG PO QHS, (Reported) Allergies Coded Allergies: No Known Allergies (Verified Allergy, Unknown, 09/18/20) EDUARDO PRATER MD Sep 22, 2020 11:35
[2020-09-22 11:53] VITALS: BP 167/81
== END 2020-09-22 12:52 | disposition home or self-care (01) | DRG 378 ==
LOC: M ED 16:31 → M PCU 19:26 → ENRESERV 20:09
PROVIDERS: ADMIT Internal Medicine; ATTEND Internal Medicine
PROC: 30233N1 Transfusion of Nonautologous Red Blood Cells into Peripheral Vein, Percutaneous Approach (ICD-10-PCS; 2020-09-18)
PROC: 0DB98ZX Excision of Duodenum, Via Natural or Artificial Opening Endoscopic, Diagnostic (ICD-10-PCS; 2020-09-21)
PROC: 0DBM8ZX Excision of Descending Colon, Via Natural or Artificial Opening Endoscopic, Diagnostic (ICD-10-PCS; 2020-09-21)
PROC: 0W3P8ZZ Control Bleeding in Gastrointestinal Tract, Via Natural or Artificial Opening Endoscopic (ICD-10-PCS; 2020-09-21)
PROC: 0DB68ZX Excision of Stomach, Via Natural or Artificial Opening Endoscopic, Diagnostic (ICD-10-PCS; principal; 2020-09-21 12:00)
DX: K92.2 Gastrointestinal hemorrhage, unspecified (principal); Z94.4 Liver transplant status; I48.20 Chronic atrial fibrillation, unspecified; D62 Acute posthemorrhagic anemia; D50.9 Iron deficiency anemia, unspecified; N18.30 Chronic kidney disease, stage 3 unspecified; D52.9 Folate deficiency anemia, unspecified; K20.90 Esophagitis, unspecified without bleeding; K22.2 Esophageal obstruction; Z79.01 Long term (current) use of anticoagulants; Z79.899 Other long term (current) drug therapy; I48.0 Paroxysmal atrial fibrillation; K29.60 Other gastritis without bleeding; D12.4 Benign neoplasm of descending colon

== ENCOUNTER → 2021-06-29 | Outpatient (CLI) | payer MEDICARE ==
[~2021-06-29] MED LIST: ELIQ5TAB PO; FERR325T18 PO; FOLI1TAB11 PO; MAGN400C PO; METO100T5 PO; PANT40TA29 PO; TACR0.5C3 PO
--- NOTE | 2021-06-29 19:53 | REPVR ---
PROCEDURE INFORMATION: Exam: MR Lumbar Spine Without Contrast Exam date and time: 06/29/2021 6:56 PM Age: 71 years old Clinical indication: Low back pain; Additional info: Lbp, lumbar spondylosis TECHNIQUE: Imaging protocol: Multiplanar magnetic resonance images of the lumbar spine without intravenous contrast. COMPARISON: No relevant prior studies available. FINDINGS: Vertebrae: Mild anterolisthesis of L2 with respect to L1 and L3. Schmorl's node superior endplate T12. Spinal cord: Normal signal. No cord compression. T12-L1: Diffusely bulging annulus T12-L1 without spinal stenosis. L1-L2: There is a moderate to severe central spinal stenosis at L1-L2 secondary to diffuse annular bulging, thickened ligamentum flavum with facet joint arthropathy. L2-L3: There is a severe central spinal stenosis at L2-L3 secondary to diffuse annular bulging, thickened ligamentum flavum with marked facet joint arthropathy. Moderate bilateral foraminal stenosis. L3-L4: There is a moderate central spinal stenosis at L3-L4 with secondary to diffuse annular bulging, thickened ligamentum flavum moderate facet joint arthropathy. L4-L5: Diffusely bulging annulus L4-L5 with a mild central spinal stenosis. There is marked bilateral facet joint arthropathy, right greater than left. Moderate foraminal stenosis on the right. L5-S1: Mild annular bulge L5-S1. Moderate bilateral facet joint arthropathy. No spinal stenosis. Soft tissues: Unremarkable. IMPRESSION: 1. Degenerative spondylosis with moderate to severe central spinal stenosis at L1-L2, severe spinal stenosis at L2-L3, moderate central spinal stenosis at L3-L4 and a mild central spinal stenosis at L4-L5. 2. Multilevel foraminal stenosis as described above. Electronically signed by: Mack Carbajal On 06/29/2021 19:52:28 PM
== END ==
LOC: M RAD 17:22
PROVIDERS: ATTEND Anesthesiology Pain Medicine
DX: M47.816 Spondylosis without myelopathy or radiculopathy, lumbar region (principal); M51.25 Other intervertebral disc displacement, thoracolumbar region; M51.27 Other intervertebral disc displacement, lumbosacral region